=== PATIENT | male | born 1960 | race Caucasian/White ===

== ENCOUNTER 2020-10-05 10:44 | Observation (INO) | payer BC ==
[~2020-10-05] VITALS: Ht 182.9 cm; Wt 98.0 kg
[2020-10-05 10:53] VITALS: BP 131/92
[2020-10-05 11:13] LABS: ABSOLUTE MONOCYTES 0.2 thou/uL (0.0-1.2); ABSOLUTE NEUTROPHILS 2.2 thou/uL (1.6-8.1); BASOPHILS 0.5 %; EOSINOPHILS 0.1 %; HEMATOCRIT 48.1 % (42.0-52.0); HEMOGLOBIN 16.7 gm/dL (14.0-18.0); LYMPHOCYTES 28.6 %; MCH 31.6 pg (26.0-34.0); MCHC 34.8 g/dL (28.0-37.0); MCV 90.9 fL (80.0-100.0); MONOCYTES 7.1 %; MPV 8.2 fl. (7.2-11.1); NUCLEATED RBCS 0 /100WBC; PLATELET COUNT* 208 thou/uL (150-400); POLYS 63.7 %; RBC 5.29 mil/uL (4.50-6.00); RDW-CV 13.2 % (10.5-14.5); WBC 3.5 thou/uL (4.0-11.0)
[2020-10-05 11:22] LABS: CALCIUM 9.9 mg/dL (8.5-10.1); POTASSIUM 4.1 mmol/L (3.5-5.1)
[2020-10-05 11:32] LABS: INFLUENZA A ANTIGEN Negative (Negative); INFLUENZA B ANTIGEN Negative (Negative)
[2020-10-05 11:33] LABS: ALBUMIN 3.6 g/dL (3.4-5.0); TOTAL BILIRUBIN 0.4 mg/dL (<0.1-1.0); TOTAL PROTEIN 7.1 g/dL (6.4-8.2)
[2020-10-05 14:22] LABS: MAGNESIUM 1.7 mg/dL (1.8-2.4); PHOSPHORUS* 2.6 mg/dL (2.5-4.9)
--- NOTE | 2020-10-05 15:32 | EKG ---
[place] [address] ELECTROCARDIOGRAM REPORT Name: JOSEPHINE BLACKWOOD Room: [place] [address] ADM [facility]#: [id number] Admission: 10/05/20 Attend Phys: Pernell Carrion Discharge: Date of : 60 Date of Service: 10/05/20 1107 Report #: [id number] THIS REPORT FOR: //name// [facility] ED Test Date: 2020-10-05 Test Time: 11:07:05 Pat Name: JOSEPHINE BLACKWOOD Department: Room: [facility] Gender: M Recruitment Consultant: LUCIANO : 1960 Requested By: Darien Marroquin Order Number: [id number] MD: Rober Dodson Measurements Intervals [place] Rate: 79 P: 21 FL: 155 QRS: -6 QRSD: 90 T: 37 QT: 355 QTc: 407 Interpretive Statements Sinus rhythm No previous ECG available for comparison Electronically Signed On 10-05-2020 15:32:15 CDT by Rober Dodson [email or web address] <ELECTRONICALLY SIGNED> By: Rober Dodson MD, [facility] 10/05/20 1532 1107 1107 Rober Dodson MD, [facility] /EPI
[2020-10-05 16:25] VITALS: BP 129/87
[2020-10-05 16:33] VITALS: BP 126/87
[2020-10-05 20:00] VITALS: BP 118/75
[2020-10-06] VITALS: BP 119/76
[2020-10-06 04:30] VITALS: BP 109/83
[2020-10-06 08:00] VITALS: BP 125/77
[2020-10-06] MEDS ORDERED: DECADRON6 MG PO (10:56)
[2020-10-06 12:27] VITALS: BP 109/83
== END 2020-10-06 15:00 | disposition home or self-care (01) ==
LOC: M.ERS 10:44 → M.2W 12:49 → M.TBA-ER 12:49 → M.2W 16:19
PROVIDERS: Emergency Medicine Emergency Medical Services; ADMIT Internal Medicine; ATTEND Internal Medicine
DX: U07.1 COVID-19 (principal); J12.82 Pneumonia due to coronavirus disease 2019; J96.00 Acute respiratory failure, unspecified whether with hypoxia or hypercapnia; R00.0 Tachycardia, unspecified; E87.1 Hypo-osmolality and hyponatremia; D72.819 Decreased white blood cell count, unspecified; E66.3 Overweight; Z68.29 Body mass index [BMI] 29.0-29.9, adult; Z87.891 Personal history of nicotine dependence